=== PATIENT | male | born 2000 ===

== ENCOUNTER 2023-11-24 11:32 | Outpatient (AMB) | payer BC, SELFPAY ==
--- NOTE | 2023-11-24 13:20 | MHC.OFFWIV ---
Intake Vital Signs 11/24/23 13:28 Height 5 ft 7 in Weight 118 lb BMI 18.5 BP 110/62 Blood Pressure Location Lt brachial Position Sitting Pulse 69 Pulse Source Pulse Oximeter Temp 97.6 F Temp Source Oral Pulse Oximetry (%) 98 Oxygen Delivery Method Room Air Intake Visit Reasons: [employer], left ear pain ([phone]) Intake Note: Pt is here today c/o Lt ear pain x1week Patient Tobacco Use Status: Never used Tobacco Allergies No Known Allergies Allergy (Verified 11/24/23 13:21) Do you need a note to return to daycare/school/sports/work: No HPI HPI Comments History of Present Illness Details 23-year-old male who presents for left ear pain. Patient recently finished a course of antibiotics for bilateral otitis media sources some ringing in the left ear and mild pressure. PFSH Social History Patient Tobacco Use Status: Never used Tobacco Review of Systems ENT Details: Ringing in the left ear Physical Exam Vital Signs: Last Vital Signs Temp 97.6 F 11/24/23 13:28 Pulse 69 11/24/23 13:28 BP 110/62 11/24/23 13:28 Pulse Ox 98 11/24/23 13:28 Oxygen Delivery Method Room Air 11/24/23 13:28 BMI result Body Mass Index 18.5 Const General: cooperative, healthy appearing, no acute distress and alert Orientation/consciousness: patient oriented x3 Limitations: no limitations HEENT Other: Mild cerumen in the left ear canal TM unremarkable mild scarring Head: Yes normal to inspection Ears: hearing grossly normal bilaterally General nose exam: Normal external nose present Resp Effort & Inspection: normal respiratory effort and able to speak in complete sentences Cardio Rate: regular rate Skin General skin exam: no rashes or lesions noted Neuro General: patient oriented x3 Extrem General: Yes normal to inspection Assessment & Plan Assessment & Plan (1) Ear ringing: Code(s): H93.19 - Tinnitus, unspecified ear Qualifiers: Laterality: left Qualified Code(s): H93.12 - Tinnitus, left ear Plan: Good resolution otitis media based examination. Mild cerumen removed from the left ear canal unclear etiology ringing recommend symptomatic treatment for several days if still present to come back for re-evaluation Coding Level of Care Code New Pt Level 3 ([id number]) Diagnoses Tinnitus of left ear H93.12 Laterality: left
[2023-11-24 13:28] VITALS: BP 110/62; PULSE 69; TEMP 36.4; O2SAT 98; BMI 18.5
== END 2023-11-24 13:54 | disposition home or self-care (01) ==
PROVIDERS: Visit Provider Physician Assistant
DX: H93.12 Tinnitus, left ear (principal)
CPT/HCPCS: 99203